=== PATIENT | male | born 1965 | race Two or more races ===

== ENCOUNTER → 2016-10-14 | Outpatient (CLI) | payer OTHER ==
[~2016-10-14] VITALS: Ht 172.7 cm; Wt 89.5 kg
[~2016-10-14] MED LIST: FEXOFENADINE H180 MG PO; FLEXERIL10 MG PO; HYDROCODON-ACE1 EAC7 PO; INSULIN PUMP SCCONT; JANUVIA100 MG PO; KENALOG,ARISTOC15 GM TP; LANTUS 10100 UNITS/ SC; LIDOCAINE700 MG TD; NOVOLOG 10100 UNITS/ SC; NYSTATIN-TRIAMC15 GM TP; OMEPRAZOLE20 MG PO; PRILOSEC20 MG PO; ULTRAM50 MG PO
[2016-10-14 09:45] LABS: POINT-OF-CARE METER ID UU13113694
[2016-10-14 11:09] LABS: POINT-OF-CARE METER ID UU13113819
== END | disposition home or self-care (01) ==
LOC: AMB 09-13 09:00
PROVIDERS: Internal Medicine
PROC: 0DJD8ZZ Inspection of Lower Intestinal Tract, Via Natural or Artificial Opening Endoscopic (ICD-10-PCS; principal; 2016-10-14)
DX: Z12.11 Encounter for screening for malignant neoplasm of colon (principal); K64.9 Unspecified hemorrhoids; E11.9 Type 2 diabetes mellitus without complications; K21.9 Gastro-esophageal reflux disease without esophagitis
CPT/HCPCS: 82948; B4087